=== PATIENT | female | born 1965 | race Caucasian/White ===

== ENCOUNTER 2022-09-04 21:55 | Observation (INO) ==
[2022-09-04] MEDS ORDERED: SODIUM CHLORIDE 0.9% 1000ML 1,000 ML IV SCH (22:30)
[2022-09-04] MEDS ORDERED: OPTIRAY 320 500ml IV ONE (22:45)
[2022-09-04 22:47] LABS: iSTAT Creatinine 1.1 mg/dl (0.6-1.3); iSTAT Hemoglobin 13.6 g/dl (12.0-16.0); iSTAT Ionized Calcium 1.18 mmol/l (1.12-1.32); iSTAT Potassium 3.9 mmol/L (3.3-5.0)
[2022-09-04 23:00] LABS: Basophils # (auto) 0.03 K/uL (0-0.2); Basophils % (auto) 0.4 %; Eosinophils # (auto) 0.08 K/uL (0-0.50); Eosinophils % (auto) 1.1 %; Hematocrit (blood only) 38.9 % (37.0-47.0); Hemoglobin 13.5 g/dl (12.0-16.0); Immature Granulocytes # (auto) 0.01 K/uL (0.01-0.20); Immature Granulocytes % (auto) 0.1 %; Lymphocytes # (auto) 2.22 K/uL (1.2-3.4); Lymphocytes % (auto) 31.2 %; Mean Corpuscular Hemoglobin 31.7 pg (25.0-34.0); Mean Corpuscular Hgb Conc 34.7 g/dL (32.0-36.0); Mean Corpuscular Volume 91.3 fL (80.0-100.0); Monocytes # (auto) 0.74 K/uL (0.11-0.59); Monocytes % (auto) 10.4 %; Neutrophils # (auto) 4.04 K/uL (1.40-6.50); Neutrophils % (auto) 56.8 %; Platelet Count 217 K/uL (130-400); RDW Coefficient of Variation 12.8 % (11.5-14.5); RDW Standard Deviation 41.9 fL (36.4-46.3); Red Blood Count 4.26 M/uL (4.20-5.40); White Blood Count 7.12 K/ul (4.8-10.8)
[2022-09-04 23:04] LABS: Albumin Globulin Ratio 1.2 (0.9-2); Albumin Level 4.3 gm/dl (3.4-5.0); BUN Creatinine Ratio 20.2 (10-20); Bilirubin,Total 0.5 mg/dl (0.2-1.0); Calcium 9.4 mg/dl (8.6-10.3); Creatinine Clr Calc Pharmacy 50.9 ml/min; Est GFR (African American) 68.6 ml/min; Est GFR (Non-African American) 59.2 ml/min; Globulin 3.5 gm/dl (2.5-4.0); Magnesium 2.2 mg/dl (1.7-2.4); Potassium 3.9 mmol/L (3.5-5.1); Total Protein 7.8 gm/dl (6.0-8.3)
--- NOTE | 2022-09-04 23:05 | CT Scan Report ---
Exam(s): CT HEAD Without Contrast EXAM: CT Head Without Intravenous Contrast CLINICAL HISTORY: Reason for exam: neuro deficit, acute stroke suspected. TECHNIQUE: Axial computed tomography images of the head/brain without intravenous contrast. CTDI is 38.78 mGy and DLP is 1133.74 mGy-cm. Automated exposure control was utilized for the study. A dose lowering technique was utilized adhering to the principles of ALARA. COMPARISON: Comparison made to prior brain MRI from December 23, 2007. FINDINGS: Brain: Unremarkable. No hemorrhage. No significant white matter disease. No edema. Ventricles: Unremarkable. No ventriculomegaly. Bones/joints: Unremarkable. No acute fracture. Soft tissues: Unremarkable. Sinuses: Unremarkable as visualized. No acute sinusitis. Mastoid air cells: Unremarkable as visualized. No mastoid effusion. IMPRESSION: No evidence of acute intracranial pathology. Communications: Call Doctor Stroke Electronically signed by: Cristina Finley MD 09/04/22 23:04 PM
--- NOTE | 2022-09-04 23:08 | CT Scan Report ---
Exam(s): CTA HEAD With Contrast EXAM: CT Head With Intravenous Contrast CLINICAL HISTORY: Reason for exam: neuro deficit, acute stroke suspected. TECHNIQUE: Axial computed tomographic images of the head with intravenous contrast. CTDI is 38.78 mGy and DLP is 1133.74 mGy-cm. Automated exposure control was utilized for the study. A dose lowering technique was utilized adhering to the principles of ALARA. CONTRAST: Contrast must be dictated COMPARISON: No relevant prior studies available. FINDINGS: Right internal carotid artery: No acute findings. Intracranial segment is patent with no significant stenosis. No aneurysm. Right anterior cerebral artery: Unremarkable. No occlusion or significant stenosis. No aneurysm. Right middle cerebral artery: Unremarkable. No occlusion or significant stenosis. No aneurysm. Right posterior cerebral artery: Unremarkable. No occlusion or significant stenosis. No aneurysm. Right vertebral artery: Unremarkable as visualized. Left internal carotid artery: No acute findings. Intracranial segment is patent with no significant stenosis. No aneurysm. Left anterior cerebral artery: Unremarkable. No occlusion or significant stenosis. No aneurysm. Left middle cerebral artery: Unremarkable. No occlusion or significant stenosis. No aneurysm. Left posterior cerebral artery: Unremarkable. No occlusion or significant stenosis. No aneurysm. Left vertebral artery: Unremarkable as visualized. Basilar artery: Unremarkable. No occlusion or significant stenosis. No aneurysm. IMPRESSION: Negative CT angiogram of the head. Communications: Call Doctor Stroke Electronically signed by: Cristina Finley MD 09/04/22 23:07 PM
[2022-09-04 23:09] LABS: Troponin I High Sensitivity 3.6 pg/ml (0-14)
--- NOTE | 2022-09-04 23:10 | CT Scan Report ---
Exam(s): CTA NECK With Contrast EXAM: CT Neck With Intravenous Contrast CLINICAL HISTORY: Reason for exam: neuro deficit, acute stroke suspected. TECHNIQUE: Routine carotid CT protocol was performed with intravenous contrast. NASCET criteria using the distal ICAs for comparison were used for evaluation of stenoses. CTDI is 38.78 mGy and DLP is 1133.74 mGy-cm. Automated exposure control was utilized for the study. A dose lowering technique was utilized adhering to the principles of ALARA. CONTRAST: Contrast must be dictated COMPARISON: None. FINDINGS: VASCULATURE: Right common carotid artery: Unremarkable. No occlusion or significant stenosis. No dissection. Right internal carotid artery: Unremarkable. Extracranial segment is patent with no occlusion or significant stenosis. No dissection. Right external carotid artery: Unremarkable. No occlusion. Right vertebral artery: Unremarkable. No occlusion or significant stenosis. No dissection. Left common carotid artery: Unremarkable. No occlusion or significant stenosis. No dissection. Left internal carotid artery: Unremarkable. Extracranial segment is patent with no occlusion or significant stenosis. No dissection. Left external carotid artery: Unremarkable. No occlusion. Left vertebral artery: Unremarkable. No occlusion or significant stenosis. No dissection. NECK: Bones/joints: Unremarkable. Soft tissues: Prominent cervical lymph nodes. Lung apices: Findings concerning for bronchitis, which may be of infectious or inflammatory etiologies. CAROTID STENOSIS REFERENCE USING NASCET CRITERIA: % ICA stenosis = (1 - narrowest ICA diameter/diameter of distal cervical ICA) x 100. Mild - <50% stenosis. Moderate - 50-69% stenosis. Severe - 70-94% stenosis. Near occlusion - 95-99% stenosis. Occluded - 100% stenosis. IMPRESSION: Negative CTA neck. Communications: Call Doctor Stroke Electronically signed by: Cristina Finley MD 09/04/22 23:09 PM
[2022-09-04 23:16] LABS: Partial Thromboplastin Ratio 0.9; Partial Thromboplastin Time 24.5 Seconds (21.0-31.0); Prothrombin Time 10.8 Seconds (9.0-12.0)
--- NOTE | 2022-09-04 23:36 | Emergency Department Note ---
History of Present Illness General Chief complaint: Visual Disturbance Stated complaint: RIGHT EYE VISION PROBLEM Time Seen by Provider: 09/04/22 22:10 History of Present Illness Maximum Pain Intensity: 4 This is a 57-year-old female presenting to the emergency department for evaluation of vision changes in her right eye. Around 7:45 PM the patient was exercising and had started to run. She states that the perimeter of her vision in the right eye started to become black and then migrate centrally where she was not able to see out of the right eye. The episode lasted for 3 to 4 minutes before her vision spontaneously returned. Over the past 2 hours she has had roughly 6 or 7 identical episodes. She does not endorse significant head, neck, or chest pain. The patient may have an old history of mini stroke/TIA, and is on aspirin. She may have had some mild headache symptoms yesterday and took Tylenol. She is able to move arms and legs without difficulty. No fevers or ch ills. No injury or trauma. No slurred speech. She rates her discomfort a 4/10. She did have an eye doctor's appointment yesterday and was told her vision was normal. Home Medications Medication Instructions Recorded Confirmed Type aspirin 81 mg tablet,delayed 81 mg PO DAILY 09/04/22 09/04/22 History release cholecalciferol (vitamin D3) 50 100 mcg PO DAILY 09/04/22 09/04/22 History mcg (2,000 unit) capsule estradiol 0.025 mg/24 hr 1 patch transdermal [id number] 09/04/22 09/04/22 History semiweekly transdermal patch lorazepam 0.5 mg tablet 0.5 mg PO DAILY PRN Anxiety 09/04/22 09/04/22 History nortriptyline 10 mg capsule 20 mg PO HS 09/04/22 09/04/22 History ubrogepant 50 mg tablet (Ubrelvy) 50 mg PO UD PRN Migraine Headache 09/04/22 09/04/22 History vitamin E 268 mg (400 unit) capsule 268 mg PO DAILY 09/04/22 09/04/22 History amlodipine 5 mg tablet (Norvasc) 5 mg PO QAM #30 tabs 09/05/22 Rx doxycycline hyclate 100 mg capsule 100 mg PO BID #19 caps 09/05/22 Rx Allergies Allergy/AdvReac Type Severity Reaction Status Date / Time No Known Drug Allergies Allergy Verified 08/05/22 09:02 Past Med/Surg History Medical History Endometriosis Posterior herniation of lumbar disc Subclinical hypothyroidism Surgical History S/P laparoscopic hysterectomy RATLH-BS, excision of endometriosis, cystoscopy for fibroid uterus S/P subtotal parathyroidectomy 3/4 Family History Denies family history of Ovarian cancer Breast cancer Colorectal cancer Uterine cancer Social History Smoking Status: Former smoker Do You Dip or Chew Tobacco: No; Tobacco Cessation Education Requested by Patient: No Hx Alcohol Use: Yes Hx Substance Use: No Preferred Language: [place] Communication Ability: Effective Director Required: No Beliefs That Will Affect Care: None Current Living Situation: Spouse Other Information That Helps Us Care for You: No Feels Safe at Home: Yes Safety Concerns: Feels Safe At This Time Assistive Devices: Glasses Review of Systems A total of 10 systems reviewed and were otherwise negative Physical Exam Vital Signs Vital Signs - 24 hr 09/04/22 22:50 09/04/22 23:00 09/04/22 23:30 Pulse Rate 60 57 L Pulse Rate [Left Apical] 61 Pulse Rate from SpO2 Sensor 57 L Respiratory Rate 19 18 17 Blood Pressure 134/84 137/86 Blood Pressure [Right Arm] 156/96 H Blood Pressure Mean 100 103 Blood Pressure Mean [Right Arm] 116 Pulse Oximetry 97 99 96 Oxygen Delivery Method Room Air Room Air 09/05/22 00:00 09/04/22 23:40 Pulse Rate 58 L 66 Pulse Rate [Left Apical] Pulse Rate from SpO2 Sensor 59 L Respiratory Rate 16 Blood Pressure 132/86 Blood Pressure [Right Arm] Blood Pressure Mean 101 Blood Pressure Mean [Right Arm] Pulse Oximetry 95 Oxygen Delivery Method VITALS: Vitals are noted on the nurse's note and reviewed by myself. Vital signs stable. GENERAL: Well-developed, well-nourished, white female, who is in no acute distress and resting comfortably. Patient is cooperative with the examination. HEAD: Normocephalic atraumatic. EARS: External ear normal. External auditory canals clear, tympanic membranes pearly [place] without erythema or effusion bilaterally. EYES: Pupils equal round and reactive to light and accommodation. Conjunctivae without injection, sclerae without icterus. Extraocular movements intact. NOSE: Patent, turbinates without inflammation or discharge. MOUTH: Mucous membranes moist. Tonsils are not enlarged. Pharynx without erythema, blood, or exudate. Uvula midline. Airway patent. NECK: Supple without nuchal rigidity. No lymphadenopathy. No thyromegaly. Cervical spine is nontender. HEART: Regular rate and rhythm without murmurs gallops or rubs. LUNGS: Clear to auscultation bilaterally without wheezes, rales or rhonchi. No retractions or accessory muscle use. ABDOMEN: Positive normal bowel sounds x 4. Soft, nontender, without masses or organomegaly. No guarding or rebound tenderness. MUSCULOSKELETAL: No muscle atrophy, erythema, or edema noted. Full range of motion in all extremities. No tenderness to palpation. Normal gait. Strength 5/5 throughout. NEURO: Patient was alert and oriented to person place and time. CN II through XII grossly intact. No focal neurological deficits. Deep tendon reflexes 2+ throughout. SKIN: The skin was without rashes, erythema, edema, or bruising. Capillary refill less than 2 seconds. Course Administered Medications Discontinued Medications Acetaminophen (Acetaminophen 325 Mg Tab) 650 mg PO Q4H PRN PRN Reason: Pain or Fever Stop: 10/05/22 02:01 Last Admin: 09/05/22 08:53 Dose: 650 mg Documented By: RODERICK Amlodipine Besylate (Amlodipine Besylate 5 Mg Tab) 5 mg PO NOW ONE Stop: 09/05/22 13:35 Last Admin: 09/05/22 14:43 Dose: 5 mg Documented By: RODERICK Aspirin (Aspirin 81 Mg Ectab) 81 mg PO DAILY [facility] Stop: 10/05/22 08:59 Last Admin: 09/05/22 08:53 Dose: 81 mg Documented By: RODERICK Clopidogrel Bisulfate (Clopidogrel Bisulfate 75 Mg Tab) 75 mg PO NOW STA Stop: 09/05/22 01:32 Last Admin: 09/05/22 04:38 Dose: 75 mg Documented By: AMADOU Enoxaparin Sodium (Enoxaparin Inj 30 Mg/0.3 Ml Syr) 30 mg SQ QAM [facility] Stop: 10/05/22 08:59 Last Admin: 09/05/22 08:54 Dose: 30 mg Documented By: RODERICK Sodium Chloride (Nss 1000ml) 1,000 mls @ 50 mls/hr IV .Q20H NICOLE Stop: 10/04/22 22:29 Last Infusion: 09/05/22 00:08 Dose: 0 mls/hr Documented By: Admin: 09/04/22 22:53 Dose: 50 mls/hr Documented By: ISA Sodium Chloride (Nss 1000ml) 1,000 mls @ 50 mls/hr IV .Q20H STA Stop: 09/05/22 19:43 Last Infusion: 09/05/22 04:38 Dose: 50 mls/hr Documented By: Admin: 09/05/22 00:09 Dose: 75 mls/hr Documented By: MATIAS Doxycycline Hyclate 100 mg/ (Dextrose) 110 mls @ 50 mls/hr IV NOW STA Stop: 09/05/22 03:38 Last Infusion: 09/05/22 04:42 Dose: 0 mls/hr Documented By: Admin: 09/05/22 02:30 Dose: 50 mls/hr Documented By: AMADOU Ioversol (Optiray 320 500ml) 112 ml IV ONCE ONE Stop: 09/04/22 22:46 Last Admin: 09/04/22 22:46 Dose: 112 ml Documented By: LIZZETH Lorazepam (Lorazepam 0.5 Mg Tab) 0.5 mg PO DAILY PRN PRN Reason: Anxiety Stop: 10/05/22 02:01 Last Admin: 09/05/22 11:17 Dose: 0.5 mg Documented By: RODERICK Medical Decision Making Differential Diagnosis The differential diagnosis includes, but is not limited to: acute intracranial bleed, TIA, meningitis, encephalitis, mass or mass effect, sinusitis, infection, tumor, headache, temporal arteritis and carbon monoxide exposure, and migraine. Laboratory Data 09/04/22 22:29 09/04/22 22:29 Lab Results 09/04/22 09/04/22 09/04/22 Range/Units 22:29 22:29 22:29 WBC 7.12 (4.8-10.8) K/ul RBC 4.26 (4.20-5.40) M/uL Hgb 13.5 (12.0-16.0) g/dl POC Hgb (12.0-16.0) g/dl Hct 38.9 (37.0-47.0) % POC Hct (37-47) % MCV 91.3 (80.0-100.0) fL MCH 31.7 (25.0-34.0) pg MCHC 34.7 (32.0-36.0) g/dL RDW Std Deviation 41.9 (36.4-46.3) fL RDW Coeff of Isma 12.8 (11.5-14.5) % Plt Count 217 (130-400) K/uL MPV 12.0 (9.4-12.4) fL Immature Gran % (Auto) 0.1 % Neut % (Auto) 56.8 % Lymph % (Auto) 31.2 % [place] % (Auto) 10.4 % Eos % (Auto) 1.1 % Baso % (Auto) 0.4 % Neut # (Auto) 4.04 (1.40-6.50) K/uL Lymph # (Auto) 2.22 (1.2-3.4) K/uL [place] # (Auto) 0.74 H (0.11-0.59) K/uL Eos # (Auto) 0.08 (0-0.50) K/uL Baso # (Auto) 0.03 (0-0.2) K/uL Immature Gran # (Auto) 0.01 (0.01-0.20) K/uL PT 10.8 (9.0-12.0) Seconds INR 1.0 (0.9-1.1) APTT 24.5 (21.0-31.0) Seconds PTT Ratio 0.9 POC Sodium (135-144) mmol/L Sodium (136-145) mmol/L POC Potassium (3.3-5.0) mmol/L Potassium (3.5-5.1) mmol/L POC Chloride (101-112) mmol/L Chloride (98-107) mmol/L Carbon Dioxide (21-32) mmol/L POC Total CO2 (24-31) mmol/L Anion Gap (3-11) POC Anion Gap (16-25) mmol/L POC BUN (7-18) mg/dl BUN (6-23) mg/dl Creatinine (0.6-1.2) mg/dl POC Creatinine (0.6-1.3) mg/dl Est Cr Clr Drug Dosing ml/min Est GFR ( Amer) ml/min Est GFR (Non-Af Amer) ml/min BUN/Creatinine Ratio (10-20) Glucose (70-99(Fasting)) mg/dl POC Glucose (other) (70-99) mg/dl Calcium (8.6-10.3) mg/dl POC Ioniz Calcium Angel (1.12-1.32) mmol/l Magnesium (1.7-2.4) mg/dl Total Bilirubin (0.2-1.0) mg/dl AST (13-39) U/L ALT (7-52) U/L Alkaline Phosphatase (34-104) U/L Troponin I High Sens (0-14) pg/ml Total Protein (6.0-8.3) gm/dl Albumin (3.4-5.0) gm/dl Globulin (2.5-4.0) gm/dl Albumin/Globulin Ratio (0.9-2) TSH (0.300-4.500) uIu/ml Lyme Disease IgG Ab (Negative) Lyme Disease IgM Ab (Negative) SARS-CoV-2, RNA, NAAT (NEGATIVE) Blood Type B Positive Antibody Screen NEGATIVE 09/04/22 09/04/22 09/04/22 Range/Units 22:29 22:29 22:29 WBC (4.8-10.8) K/ul RBC (4.20-5.40) M/uL Hgb (12.0-16.0) g/dl POC Hgb (12.0-16.0) g/dl Hct (37.0-47.0) % POC Hct (37-47) % MCV (80.0-100.0) fL MCH (25.0-34.0) pg MCHC (32.0-36.0) g/dL RDW Std Deviation (36.4-46.3) fL RDW Coeff of Isma (11.5-14.5) % Plt Count (130-400) K/uL MPV (9.4-12.4) fL Immature Gran % (Auto) % Neut % (Auto) % Lymph % (Auto) % [place] % (Auto) % Eos % (Auto) % Baso % (Auto) % Neut # (Auto) (1.40-6.50) K/uL Lymph # (Auto) (1.2-3.4) K/uL [place] # (Auto) (0.11-0.59) K/uL Eos # (Auto) (0-0.50) K/uL Baso # (Auto) (0-0.2) K/uL Immature Gran # (Auto) (0.01-0.20) K/uL PT (9.0-12.0) Seconds INR (0.9-1.1) APTT (21.0-31.0) Seconds PTT Ratio POC Sodium (135-144) mmol/L Sodium 139 (136-145) mmol/L POC Potassium (3.3-5.0) mmol/L Potassium 3.9 (3.5-5.1) mmol/L POC Chloride (101-112) mmol/L Chloride 104 (98-107) mmol/L Carbon Dioxide 29 (21-32) mmol/L POC Total CO2 (24-31) mmol/L Anion Gap 6 (3-11) POC Anion Gap (16-25) mmol/L POC BUN (7-18) mg/dl BUN 21 (6-23) mg/dl Creatinine 1.04 (0.6-1.2) mg/dl POC Creatinine (0.6-1.3) mg/dl Est Cr Clr Drug Dosing 50.9 ml/min Est GFR ( Amer) 68.6 ml/min Est GFR (Non-Af Amer) 59.2 ml/min BUN/Creatinine Ratio 20.2 H (10-20) Glucose 105 H (70-99(Fasting)) mg/dl POC Glucose (other) (70-99) mg/dl Calcium 9.4 (8.6-10.3) mg/dl POC Ioniz Calcium Angel (1.12-1.32) mmol/l Magnesium 2.2 (1.7-2.4) mg/dl Total Bilirubin 0.5 (0.2-1.0) mg/dl AST 24 (13-39) U/L ALT 23 (7-52) U/L Alkaline Phosphatase 73 (34-104) U/L Troponin I High Sens 3.6 (0-14) pg/ml Total Protein 7.8 (6.0-8.3) gm/dl Albumin 4.3 (3.4-5.0) gm/dl Globulin 3.5 (2.5-4.0) gm/dl Albumin/Globulin Ratio 1.2 (0.9-2) TSH 3.455 (0.300-4.500) uIu/ml Lyme Disease IgG Ab Negative (Negative) Lyme Disease IgM Ab Equivocal A (Negative) SARS-CoV-2, RNA, NAAT (NEGATIVE) Blood Type Antibody Screen 09/04/22 09/05/22 Range/Units 22:34 00:04 WBC (4.8-10.8) K/ul RBC (4.20-5.40) M/uL Hgb (12.0-16.0) g/dl POC Hgb 13.6 (12.0-16.0) g/dl Hct (37.0-47.0) % POC Hct 40 (37-47) % MCV (80.0-100.0) fL MCH (25.0-34.0) pg MCHC (32.0-36.0) g/dL RDW Std Deviation (36.4-46.3) fL RDW Coeff of Isma (11.5-14.5) % Plt Count (130-400) K/uL MPV (9.4-12.4) fL Immature Gran % (Auto) % Neut % (Auto) % Lymph % (Auto) % [place] % (Auto) % Eos % (Auto) % Baso % (Auto) % Neut # (Auto) (1.40-6.50) K/uL Lymph # (Auto) (1.2-3.4) K/uL [place] # (Auto) (0.11-0.59) K/uL Eos # (Auto) (0-0.50) K/uL Baso # (Auto) (0-0.2) K/uL Immature Gran # (Auto) (0.01-0.20) K/uL PT (9.0-12.0) Seconds INR (0.9-1.1) APTT (21.0-31.0) Seconds PTT Ratio POC Sodium 141 (135-144) mmol/L Sodium (136-145) mmol/L POC Potassium 3.9 (3.3-5.0) mmol/L Potassium (3.5-5.1) mmol/L POC Chloride 102 (101-112) mmol/L Chloride (98-107) mmol/L Carbon Dioxide (21-32) mmol/L POC Total CO2 26 (24-31) mmol/L Anion Gap (3-11) POC Anion Gap 18.0 (16-25) mmol/L POC BUN 20 H (7-18) mg/dl BUN (6-23) mg/dl Creatinine (0.6-1.2) mg/dl POC Creatinine 1.1 (0.6-1.3) mg/dl Est Cr Clr Drug Dosing ml/min Est GFR ( Amer) ml/min Est GFR (Non-Af Amer) ml/min BUN/Creatinine Ratio (10-20) Glucose (70-99(Fasting)) mg/dl POC Glucose (other) 106 H (70-99) mg/dl Calcium (8.6-10.3) mg/dl POC Ioniz Calcium Angel 1.18 (1.12-1.32) mmol/l Magnesium (1.7-2.4) mg/dl Total Bilirubin (0.2-1.0) mg/dl AST (13-39) U/L ALT (7-52) U/L Alkaline Phosphatase (34-104) U/L Troponin I High Sens (0-14) pg/ml Total Protein (6.0-8.3) gm/dl Albumin (3.4-5.0) gm/dl Globulin (2.5-4.0) gm/dl Albumin/Globulin Ratio (0.9-2) TSH (0.300-4.500) uIu/ml Lyme Disease IgG Ab (Negative) Lyme Disease IgM Ab (Negative) SARS-CoV-2, RNA, NAAT NEGATIVE (NEGATIVE) Blood Type Antibody Screen Imaging Data Radiologist's Impression: Head CT 09/04/22 22:19 CR Exam(s): CT HEAD Without Contrast EXAM: CT Head Without Intravenous Contrast CLINICAL HISTORY: Reason for exam: neuro deficit, acute stroke suspected. TECHNIQUE: Axial computed tomography images of the head/brain without intravenous contrast. CTDI is 38.78 mGy and DLP is 1133.74 mGy-cm. Automated exposure control was utilized for the study. A dose lowering technique was utilized adhering to the principles of ALARA. COMPARISON: Comparison made to prior brain MRI from December 23, 2007. FINDINGS: Brain: Unremarkable. No hemorrhage. No significant white matter disease. No edema. Ventricles: Unremarkable. No ventriculomegaly. Bones/joints: Unremarkable. No acute fracture. Soft tissues: Unremarkable. Sinuses: Unremarkable as visualized. No acute sinusitis. Mastoid air cells: Unremarkable as visualized. No mastoid effusion. IMPRESSION: No evidence of acute intracranial pathology. Communications: Call Doctor Stroke Electronically signed by: Cristina Finley MD 09/04/22 23:04 PM Head CTA 09/04/22 22:19 CR Exam(s): CTA HEAD With Contrast EXAM: CT Head With Intravenous Contrast CLINICAL HISTORY: Reason for exam: neuro deficit, acute stroke suspected. TECHNIQUE: Axial computed tomographic images of the head with intravenous contrast. CTDI is 38.78 mGy and DLP is 1133.74 mGy-cm. Automated exposure control was utilized for the study. A dose lowering technique was utilized adhering to the principles of ALARA. CONTRAST: Contrast must be dictated COMPARISON: No relevant prior studies available. FINDINGS: Right internal carotid artery: No acute findings. Intracranial segment is patent with no significant stenosis. No aneurysm. Right anterior cerebral artery: Unremarkable. No occlusion or significant stenosis. No aneurysm. Right middle cerebral artery: Unremarkable. No occlusion or significant stenosis. No aneurysm. Right posterior cerebral artery: Unremarkable. No occlusion or significant stenosis. No aneurysm. Right vertebral artery: Unremarkable as visualized. Left internal carotid artery: No acute findings. Intracranial segment is patent with no significant stenosis. No aneurysm. Left anterior cerebral artery: Unremarkable. No occlusion or significant stenosis. No aneurysm. Left middle cerebral artery: Unremarkable. No occlusion or significant stenosis. No aneurysm. Left posterior cerebral artery: Unremarkable. No occlusion or significant stenosis. No aneurysm. Left vertebral artery: Unremarkable as visualized. Basilar artery: Unremarkable. No occlusion or significant stenosis. No aneurysm. IMPRESSION: Negative CT angiogram of the head. Communications: Call Doctor Stroke Electronically signed by: Cristina Finley MD 09/04/22 23:07 PM Neck CTA 09/04/22 22:19 CR Exam(s): CTA NECK With Contrast EXAM: CT Neck With Intravenous Contrast CLINICAL HISTORY: Reason for exam: neuro deficit, acute stroke suspected. TECHNIQUE: Routine carotid CT protocol was performed with intravenous contrast. NASCET criteria using the distal ICAs for comparison were used for evaluation of stenoses. CTDI is 38.78 mGy and DLP is 1133.74 mGy-cm. Automated exposure control was utilized for the study. A dose lowering technique was utilized adhering to the principles of ALARA. CONTRAST: Contrast must be dictated COMPARISON: None. FINDINGS: VASCULATURE: Right common carotid artery: Unremarkable. No occlusion or significant stenosis. No dissection. Right internal carotid artery: Unremarkable. Extracranial segment is patent with no occlusion or significant stenosis. No dissection. Right external carotid artery: Unremarkable. No occlusion. Right vertebral artery: Unremarkable. No occlusion or significant stenosis. No dissection. Left common carotid artery: Unremarkable. No occlusion or significant stenosis. No dissection. Left internal carotid artery: Unremarkable. Extracranial segment is patent with no occlusion or significant stenosis. No dissection. Left external carotid artery: Unremarkable. No occlusion. Left vertebral artery: Unremarkable. No occlusion or significant stenosis. No dissection. NECK: Bones/joints: Unremarkable. Soft tissues: Prominent cervical lymph nodes. Lung apices: Findings concerning for bronchitis, which may be of infectious or inflammatory etiologies. CAROTID STENOSIS REFERENCE USING NASCET CRITERIA: % ICA stenosis = (1 - narrowest ICA diameter/diameter of distal cervical ICA) x 100. Mild - <50% stenosis. Moderate - 50-69% stenosis. Severe - 70-94% stenosis. Near occlusion - 95-99% stenosis. Occluded - 100% stenosis. IMPRESSION: Negative CTA neck. Communications: Call Doctor Stroke Electronically signed by: Cristina Finley MD 09/04/22 23:09 PM MDM Narrative Physical exam and history were performed. Nursing notes, EMR, and Medication List were personally reviewed. No social concerns were identified as barriers to patients care. Patient appears to have visual disturbance in her right eye. This seems to be waxing and waning. Symptoms have been ongoing since about 7:45 PM. She does not have extremity symptoms. IV access was established and labs were obtained. Stroke order set was used to begin the patient's evaluation. Patient's blood work is as above and was reviewed. She does not have a significantly elevated white blood cell count, gross anemia, bandemia, or significant electrolyte imbalance. Transaminases are not diagnostic. CTs and CT angiograms were reviewed by myself and radiology showing no obvious acute process. I did speak with radiology about this, who confirmed no acute findings. On reevaluation the patient continues to be asymptomatic here in the ER. Her differential diagnosis is wide and she will need further evaluation here in the hospital. The case was discussed with the on-call hospitalist team who agreed to evaluate her here in the ER. Please see their dictation for further patient course, plan, disposition. The chart was completed utilizing [employer] Speech Voice Recognition Software. Grammatical errors, random word insertions, pronoun errors, and incomplete sentences are an occasional consequence of this system due to software limitations, ambient noise, and hardware issues. Any formal questions or concerns about the content, text, or information contained within the body of this dictation should be directly addressed to the provider for clarification. . Impression & Plan Transient visual disturbance, right Discharge Plan Visit Data Chief Complaint: Visual Disturbance Stated Complaint: RIGHT EYE VISION PROBLEM ED Provider: Maulik Magdaleno ED Midlevel Provider: João Perdomo Discharge Problem: Transient visual disturbance, right Patient Disposition: Admitted As Inpatient Discharge Instructions Interventions: ED Discharge Assessment Last Done: 09/05/22 01:18
[2022-09-04] MEDS ORDERED: SODIUM CHLORIDE 0.9% 1000ML 1,000 ML IV STA (23:44)
--- NOTE | 2022-09-05 00:43 | History & Physical Report ---
Date of Service September 05, 2022 Assessment & Plan (1) Transient visual disturbance, right: Plan: TIA presenting as amaurosis fugax, right, possible aspirin failure, history small vessel ischemic disease; in the setting of recent hormonal replacement therapy Rule out Lyme disease with equivocal Lyme test hypertension, elevated secondary to above primary hyperparathyroidism status post surgery hx migraine, patient headache different from usual migraine attacks hx GERD, takes antacid as needed anxiety/mood disorder, at baseline Medical telemetry Neurochecks MRI brain, TTE, lipid panel check for stroke work-up Plavix for possible aspirin failure, permissive hypertension until new stroke definitely ruled out Appropriate to hold HRT given stroke concerns Doxycycline for abnormal Lyme screen, further management pending final Lyme test results Neurology consult Re: Transient monocular blindness DVT prophylaxis with Lovenox subcu Full code Text document was generated using [employer] voice recognition software. It may contain grammatical or spelling errors. Kindly contact undersigned for clarification of any documentation item in question. History of Present Illness Chief Complaint: Transient blindness right eye Primary Care Provider: Timoteo Vasquez DO History obtained from patient and records. Medical history significant for hypertension, hx small vessel ischemic disease on outpatient imaging, primary hyperparathyroidism status post surgery, migraine, GERD, anxiety/mood disorder. Patient started by service girl on estrogen patch for perimenopausal vasomotor symptoms last month. Last night, patient was out for a jog when she noted a black spot on the periphery of her right eye. Black spot went into the middle of her high causing her to be blind for about 4 minutes. Tolerable biparietal headache symptoms at time of event different from usual migraine attack. No neck pain. No recollection of tick bites but patient recalls being out in the earlier yesterday. Patient denies chest pain, SOB. No recent head trauma. Patient compliant with home aspirin prescribed for small vessel ischemic disease findings on outpatient imaging last year following work-up for headache symptoms later attributed to migraine. Aspirin prescribed by neurologist for stroke prevention. Patient consulted ER for evaluation. 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 Allergies Allergy/AdvReac Type Severity Reaction Status Date / Time No Known Drug Allergies Allergy Verified 08/05/22 09:02 Home Medications Medication Instructions Recorded Confirmed Type atenolol 25 mg tablet 25 mg PO DAILY 06/28/22 09/04/22 History aspirin 81 mg tablet,delayed 81 mg PO DAILY 09/04/22 09/04/22 History release cholecalciferol (vitamin D3) 50 100 mcg PO DAILY 09/04/22 09/04/22 History mcg (2,000 unit) capsule estradiol 0.025 mg/24 hr 1 patch transdermal 2XWK 09/04/22 09/04/22 History semiweekly transdermal patch lorazepam 0.5 mg tablet 0.5 mg PO DAILY PRN Anxiety 09/04/22 09/04/22 History nortriptyline 10 mg capsule 20 mg PO HS 09/04/22 09/04/22 History ubrogepant 50 mg tablet (Ubrelvy) 50 mg PO UD PRN Migraine Headache 09/04/22 09/04/22 History vitamin E 268 mg (400 unit) capsule 268 mg PO DAILY 09/04/22 09/04/22 History Past Med/Surg History Medical History Endometriosis Posterior herniation of lumbar disc Subclinical hypothyroidism Surgical History S/P laparoscopic hysterectomy RATLH-BS, excision of endometriosis, cystoscopy for fibroid uterus S/P subtotal parathyroidectomy 3/4 Family History Denies family history of Ovarian cancer Breast cancer Colorectal cancer Uterine cancer Social History Smoking Status: Former smoker Do You Dip or Chew Tobacco: No; Tobacco Cessation Education Requested by Patient: No Hx Alcohol Use: Yes Hx Substance Use: No Preferred Language: Lithuanian Communication Ability: Effective Screw 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 Required: No Beliefs That Will Affect Care: None Current Living Situation: Spouse Other Information That Helps Us Care for You: No Feels Safe at Home: Yes Safety Concerns: Feels Safe At This Time Assistive Devices: Glasses Review of Systems Review of Systems: As per HPI, all other systems reviewed and negative Physical Exam Physical Exam: GENERAL: Comfortable, pleasant, no respiratory distress SKIN: Normal color, warm HEENT: Diamond palpebral conjunctivae, no ptosis, dry buccal mucosa NECK : Supple, no tenderness CHEST : CTA, no tenderness HEART : Bradycardic, no obvious murmurs ABDOMEN: Some distention, nontender EXTREMITIES : No LE swelling/tenderness, no other conspicuous deformities noted NEUROLOGIC : Coherent, no facial asymmetry, no other gross focality Results & Data Results & Data Vital Signs (Past 12 Hours) Vital Signs Temp Pulse Pulse Resp BP BP Pulse Ox 09/04/22 23:40 66 09/05/22 00:00 58 L 16 132/86 95 09/04/22 23:30 57 L 17 137/86 96 09/04/22 23:00 60 18 134/84 99 09/04/22 22:50 61 19 156/96 H 97 09/04/22 22:00 36.8 C 57 L 18 151/86 H 98 O2 Del Method 09/04/22 23:40 09/05/22 00:00 09/04/22 23:30 09/04/22 23:00 Room Air 09/04/22 22:50 Room Air 09/04/22 22:00 Room Air Laboratory Results Laboratory Results WBC 7.12 K/ul (4.8-10.8) 09/04/22 22: RBC 4.26 M/uL (4.20-5.40) 09/04/22 22: Hgb 13.5 g/dl (12.0-16.0) 09/04/22 22: POC Hgb 13.6 g/dl (12.0-16.0) 09/04/22 22:34 Hct 38.9 % (37.0-47.0) 09/04/22 22: POC Hct 40 % (37-47) 09/04/22 22: MCV 91.3 fL (80.0-100.0) 09/04/22 22: MCH 31.7 pg (25.0-34.0) 09/04/22 22: MCHC 34.7 g/dL (32.0-36.0) 09/04/22: RDW Std Deviation 41.9 fL (36.4-46.3) 09/04/22 22: RDW Coeff of Isma 12.8 % (11.5-14.5) 09/04/22: Plt Count 217 K/uL (130-400) 09/04/22 22: MPV 12.0 fL (9.4-12.4) 09/04/22: Immature Gran % (Auto) 0.1 % 09/04/22: Neut % (Auto) 56.8 % 09/04/22: Lymph % (Auto) 31.2 % 09/04/22: [place] % (Auto) 10.4 % 09/04/22: Eos % (Auto) 1.1 % 09/04/22: Baso % (Auto) 0.4 % 09/04/22: Neut # (Auto) 4.04 K/uL (1.40-6.50) 09/04/22: Lymph # (Auto) 2.22 K/uL (1.2-3.4) 09/04/22: [place] # (Auto) 0.74 K/uL (0.11-0.59) H 09/04/22: Eos # (Auto) 0.08 K/uL (0-0.50) 09/04/22: Baso # (Auto) 0.03 K/uL (0-0.2) 09/04/22: Immature Gran # (Auto) 0.01 K/uL (0.01-0.20) 09/04/22: PT 10.8 Seconds (9.0-12.0) 09/04/22: INR 1.0 (0.9-1.1) 09/04/22: APTT 24.5 Seconds (21.0-31.0) 09/04/22: PTT Ratio 0.9 09/04/22: POC Sodium 141 mmol/L (135-144) 09/04/22 22: Sodium 139 mmol/L (136-145) 09/04/22: POC Potassium 3.9 mmol/L (3.3-5.0) 09/04/22: Potassium 3.9 mmol/L (3.5-5.1) 09/04/22: POC Chloride 102 mmol/L (101-112) 09/04/22: Chloride 104 mmol/L (98-107) 09/04/22: Carbon Dioxide 29 mmol/L (21-32) 09/04/22 22:29 POC Total CO2 26 mmol/L (24-31) 09/04/22 22:34 Anion Gap 6 (3-11) 09/04/22 22:29 POC Anion Gap 18.0 mmol/L (16-25) 09/04/22 22:34 POC BUN 20 mg/dl (7-18) H 09/04/22 22:34 BUN 21 mg/dl (6-23) 09/04/22 22:29 Creatinine 1.04 mg/dl (0.6-1.2) 09/04/22 22:29 POC Creatinine 1.1 mg/dl (0.6-1.3) 09/04/22 22:34 Est Cr Clr Drug Dosing 50.9 ml/min 09/04/22 22:29 Est GFR ( Amer) 68.6 ml/min 09/04/22 22: Est GFR (Non-Af Amer) 59.2 ml/min 09/04/22 22: BUN/Creatinine Ratio 20.2 (10-20) H 09/04/22 22:29 Glucose 105 mg/dl (70-99(Fasting)) H 09/04/22 22:29 POC Glucose (other) 106 mg/dl (70-99) H 09/04/22 22:34 Calcium 9.4 mg/dl (8.6-10.3) 09/04/22 22:29 POC Ioniz Calcium Angel 1.18 mmol/l (1.12-1.32) 09/04/22 22:34 Magnesium 2.2 mg/dl (1.7-2.4) 09/04/22 22: Total Bilirubin 0.5 mg/dl (0.2-1.0) 09/04/22 22:29 AST 24 U/L (13-39) 09/04/22 22:29 ALT 23 U/L (7-52) 09/04/22 22: Alkaline Phosphatase 73 U/L (34-104) 09/04/22 22:29 Troponin I High Sens 3.6 pg/ml (0-14) 09/04/22 22:29 Total Protein 7.8 gm/dl (6.0-8.3) 09/04/22 22:29 Albumin 4.3 gm/dl (3.4-5.0) 09/04/22 22:29 Globulin 3.5 gm/dl (2.5-4.0) 09/04/22 22:29 Albumin/Globulin Ratio 1.2 (0.9-2) 09/04/22 22:29 SARS-CoV-2, RNA, NAAT NEGATIVE (NEGATIVE) 09/05/22 00:04 Blood Type B Positive 09/04/22 22:29 Antibody Screen NEGATIVE 09/04/22 22:[address] 09/04/22 22:19 CR Exam(s): CT HEAD Without Contrast EXAM: CT Head Without Intravenous Contrast CLINICAL HISTORY: Reason for exam: neuro deficit, acute stroke suspected. TECHNIQUE: Axial computed tomography images of the head/brain without intravenous contrast. CTDI is 38.78 mGy and DLP is 1133.74 mGy-cm. Automated exposure control was utilized for the study. A dose lowering technique was utilized adhering to the principles of ALARA. COMPARISON: Comparison made to prior brain MRI from December 23, 2007. FINDINGS: Brain: Unremarkable. No hemorrhage. No significant white matter disease. No edema. Ventricles: Unremarkable. No ventriculomegaly. Bones/joints: Unremarkable. No acute fracture. Soft tissues: Unremarkable. Sinuses: Unremarkable as visualized. No acute sinusitis. Mastoid air cells: Unremarkable as visualized. No mastoid effusion. IMPRESSION: No evidence of acute intracranial pathology. Communications: Call Doctor Stroke Electronically signed by: Cristina Finley MD 09/04/22 23:04 PM Head CTA 09/04/22 22:19 CR Exam(s): CTA HEAD With Contrast EXAM: CT Head With Intravenous Contrast CLINICAL HISTORY: Reason for exam: neuro deficit, acute stroke suspected. TECHNIQUE: Axial computed tomographic images of the head with intravenous contrast. CTDI is 38.78 mGy and DLP is 1133.74 mGy-cm. Automated exposure control was utilized for the study. A dose lowering technique was utilized adhering to the principles of ALARA. CONTRAST: Contrast must be dictated COMPARISON: No relevant prior studies available. FINDINGS: Right internal carotid artery: No acute findings. Intracranial segment is patent with no significant stenosis. No aneurysm. Right anterior cerebral artery: Unremarkable. No occlusion or significant stenosis. No aneurysm. Right middle cerebral artery: Unremarkable. No occlusion or significant stenosis. No aneurysm. Right posterior cerebral artery: Unremarkable. No occlusion or significant stenosis. No aneurysm. Right vertebral artery: Unremarkable as visualized. Left internal carotid artery: No acute findings. Intracranial segment is patent with no significant stenosis. No aneurysm. Left anterior cerebral artery: Unremarkable. No occlusion or significant stenosis. No aneurysm. Left middle cerebral artery: Unremarkable. No occlusion or significant stenosis. No aneurysm. Left posterior cerebral artery: Unremarkable. No occlusion or significant stenosis. No aneurysm. Left vertebral artery: Unremarkable as visualized. Basilar artery: Unremarkable. No occlusion or significant stenosis. No aneurysm. IMPRESSION: Negative CT angiogram of the head. Communications: Call Doctor Stroke Electronically signed by: Cristina Finley MD 09/04/22 23:07 PM Neck CTA 09/04/22 22:19 CR Exam(s): CTA NECK With Contrast EXAM: CT Neck With Intravenous Contrast CLINICAL HISTORY: Reason for exam: neuro deficit, acute stroke suspected. TECHNIQUE: Routine carotid CT protocol was performed with intravenous contrast. NASCET criteria using the distal ICAs for comparison were used for evaluation of stenoses. CTDI is 38.78 mGy and DLP is 1133.74 mGy-cm. Automated exposure control was utilized for the study. A dose lowering technique was utilized adhering to the principles of ALARA. CONTRAST: Contrast must be dictated COMPARISON: None. FINDINGS: VASCULATURE: Right common carotid artery: Unremarkable. No occlusion or significant stenosis. No dissection. Right internal carotid artery: Unremarkable. Extracranial segment is patent with no occlusion or significant stenosis. No dissection. Right external carotid artery: Unremarkable. No occlusion. Right vertebral artery: Unremarkable. No occlusion or significant stenosis. No dissection. Left common carotid artery: Unremarkable. No occlusion or significant stenosis. No dissection. Left internal carotid artery: Unremarkable. Extracranial segment is patent with no occlusion or significant stenosis. No dissection. Left external carotid artery: Unremarkable. No occlusion. Left vertebral artery: Unremarkable. No occlusion or significant stenosis. No dissection. NECK: Bones/joints: Unremarkable. Soft tissues: Prominent cervical lymph nodes. Lung apices: Findings concerning for bronchitis, which may be of infectious or inflammatory etiologies. CAROTID STENOSIS REFERENCE USING NASCET CRITERIA: % ICA stenosis = (1 - narrowest ICA diameter/diameter of distal cervical ICA) x 100. Mild - <50% stenosis. Moderate - 50-69% stenosis. Severe - 70-94% stenosis. Near occlusion - 95-99% stenosis. Occluded - 100% stenosis. IMPRESSION: Negative CTA neck. Communications: Call Doctor Stroke Electronically signed by: Cristina Finley MD 09/04/22 23:09 PM Diagnostic Findings EKG as per my interpretation : Rate 55, sinus bradycardia, normal axis, T wave abnormalities septal leads
[2022-09-05 01:12] LABS: Lyme Ab IgG w/WB Rflx Negative (Negative)
[2022-09-05 01:16] LABS: Lyme Ab IgM w/WB Rflx Equivocal (Negative)
[2022-09-05] MEDS ORDERED: DOXYCYCLINE HYCLATE 100 MG in DEXTROSE 5% 100 ML IV STA (01:27)
[2022-09-05] MEDS ORDERED: CLOPIDOGREL BISULFATE 75 MG TAB PO STA (01:31)
[2022-09-05] MEDS ORDERED: LORazepam 0.5 MG TAB PO PRN (02:02)
[2022-09-05] MEDS ORDERED: ACETAMINOPHEN 325 MG TAB PO PRN (02:02)
[2022-09-05] MEDS ORDERED: PROMETHAZINE HCL 6.25 MG in SODIUM CHLORIDE 0.9% 50 ML IV PRN (02:02)
[2022-09-05 06:39] LABS: Basophils # (auto) 0.02 K/uL (0-0.2); Basophils % (auto) 0.4 %; Eosinophils # (auto) 0.07 K/uL (0-0.50); Eosinophils % (auto) 1.4 %; Hematocrit (blood only) 36.1 % (37.0-47.0); Hemoglobin 12.5 g/dl (12.0-16.0); Immature Granulocytes # (auto) 0.02 K/uL (0.01-0.20); Immature Granulocytes % (auto) 0.4 %; Lymphocytes # (auto) 1.63 K/uL (1.2-3.4); Lymphocytes % (auto) 32.1 %; Mean Corpuscular Hemoglobin 31.6 pg (25.0-34.0); Mean Corpuscular Hgb Conc 34.6 g/dL (32.0-36.0); Mean Corpuscular Volume 91.4 fL (80.0-100.0); Mean Platelet Volume 11.9 fL (9.4-12.4); Monocytes # (auto) 0.61 K/uL (0.11-0.59); Neutrophils # (auto) 2.73 K/uL (1.40-6.50); Neutrophils % (auto) 53.7 %; Platelet Count 180 K/uL (130-400); RDW Coefficient of Variation 12.6 % (11.5-14.5); RDW Standard Deviation 41.6 fL (36.4-46.3); Red Blood Count 3.95 M/uL (4.20-5.40); White Blood Count 5.08 K/ul (4.8-10.8)
[2022-09-05 07:00] LABS: BUN Creatinine Ratio 19.3 (10-20); Calcium 8.7 mg/dl (8.6-10.3); Chol HDL Ratio 2.9 (0-5); Creatinine Clr Calc Pharmacy 66.5 ml/min; Est GFR (African American) 90.1 ml/min; Est GFR (Non-African American) 77.7 ml/min
[2022-09-05] MEDS ORDERED: ASPIRIN 81 MG ECTAB PO SCH (09:00)
[2022-09-05] MEDS ORDERED: ENOXAPARIN INJ 30 MG/0.3 ML SYR SQ SCH (09:00)
--- NOTE | 2022-09-05 10:11 | Neurology Consultation ---
Date of Consultation September 05, 2022 Assessment & Plan (1) Transient visual disturbance, right: Symptoms are not classic for a cerebrovascular cause of vision loss (amaurosis) - specifically the repetitive episodes over a short span of time and the preceding autonomic symptoms (ptosis). This suggests ocular migraine which more commonly has the autonomic component. Age and lack of associated symptoms makes temporal arteritis unlikely, would not start steroids. Do not suspect this is related to lyme disease which was found incidentally. If the MRI of the brain is unremarkable, would continue the patients home aspirin but otherwise suggest ocular migraine is the likely cause given her history. -- MRI brain without contrast pending, if negative, agree with discharge and outpatient follow-up with her neurologist -- Continue aspirin 81mg daily Telehealth Consultation Telehealth Information Telehealth Information: I performed this visit using a real-time telehealth connection between my location and the patients location ([facility]). After connecting through interactive tele-video, patient was identified by name and date of and/or wristband check.Patient (or authorized healthcare outside sales representative insurance) was informed that this was a telemedicine visit and it was being conducted confidentially over secure lines. My office door was closed and no one else was present in the room with me.Patient (or authorized healthcare outside sales representative insurance) provided consent to proceed with the visit, expressed an understanding of privacy and security of the telemedicine visit, and gave permission to have a hospital outside sales representative insurance in the room in order to assist with the visit and to conduct portions of the visit, as needed. I informed the patient (or authorized healthcare outside sales representative insurance) that I reviewed their record and presented the opportunity for them to ask any questions regarding the visit today. The patient agreed to participate. History of Present Illness Reason for Consultation: Transient visual loss Requesting Physician: Dr. Leonard Attending Physician: Edmar Leonard MD History of Present Illness Winston Perkins is a 57 yo F presenting with multiple episodes of visual loss yesterday. The patient has a history of episodic migraine and had a headache on Tuesday. Yesterday, she was running and felt that there was something in her R eye, she described tunnel vision but rubbed the eye and it resolved. Over the next hour she described multiple episodes of loss of vision in the R eye lasting minutes at a time. By the third episode she noticed that her R eyelid would droop prior the vision change. She denies any correlation between these episodes and headache. She has never had anything like this before. Denies any further episodes of vision change since admission and otherwise feels back to normal. She has seen neurology in the past for her headaches and was once told she has had "micro-strokes" before and since then has been taking a daily aspirin, despite a second neurologist saying she has never had a stroke before. She denies any temporal tenderness, no jaw claudication, no prior eye problem. Allergies Allergy/AdvReac Type Severity Reaction Status Date / Time No Known Drug Allergies Allergy Verified 08/05/22 09:02 Home Medications Medication Instructions Recorded Confirmed Type atenolol 25 mg tablet 25 mg PO DAILY 06/28/22 09/04/22 History aspirin 81 mg tablet,delayed 81 mg PO DAILY 09/04/22 09/04/22 History release cholecalciferol (vitamin D3) 50 100 mcg PO DAILY 09/04/22 09/04/22 History mcg (2,000 unit) capsule estradiol 0.025 mg/24 hr 1 patch transdermal 2XWK 09/04/22 09/04/22 History semiweekly transdermal patch lorazepam 0.5 mg tablet 0.5 mg PO DAILY PRN Anxiety 09/04/22 09/04/22 History nortriptyline 10 mg capsule 20 mg PO HS 09/04/22 09/04/22 History ubrogepant 50 mg tablet (Ubrelvy) 50 mg PO UD PRN Migraine Headache 09/04/22 09/04/22 History vitamin E 268 mg (400 unit) capsule 268 mg PO DAILY 09/04/22 09/04/22 History Patient History Medical History Endometriosis Posterior herniation of lumbar disc Subclinical hypothyroidism Surgical History S/P laparoscopic hysterectomy RATL-BS, excision of endometriosis, cystoscopy for fibroid uterus S/P subtotal parathyroidectomy 3/4 Family History Denies family history of Ovarian cancer Breast cancer Colorectal cancer Uterine cancer Social History Smoking Status: Former smoker Do You Dip or Chew Tobacco: No; Tobacco Cessation Education Requested by Patient: No Hx Alcohol Use: Yes Hx Substance Use: No Preferred Language: Vincentian Communication Ability: Effective Nut Sorter Required: No Beliefs That Will Affect Care: None Current Living Situation: Spouse Other Information That Helps Us Care for You: No Feels Safe at Home: Yes Safety Concerns: Feels Safe At This Time Assistive Devices: Glasses Review of Systems +vision changes Results & Data Vital Signs (Past 12 Hours) Vital Signs Temp Pulse Pulse Pulse Resp BP BP 09/05/22 07:49 36.8 C 52 L 16 159/89 H 09/05/22 01:44 51 L 09/05/22 02:02 36.6 C 52 L 14 171/94 H 09/05/22 02:03 36.6 C 52 L 14 171/94 H 09/04/22 23:40 66 09/05/22 00:00 58 L 16 132/86 09/04/22 23:30 57 L 17 137/86 09/04/22 23:00 60 18 134/84 09/04/22 22:50 61 19 156/96 H Pulse Ox O2 Del Method 09/05/22 07:49 99 Room Air 09/05/22 01:44 09/05/22 02:02 100 Room Air 09/05/22 02:03 100 Room Air 09/04/22 23:40 09/05/22 00:00 95 09/04/22 23:30 96 09/04/22 23:00 99 Room Air 09/04/22 22:50 97 Room Air Laboratory Results Abnormal lab results 09/04/22 09/04/22 09/04/22 Range/Units 22:29 22:29 22:29 RBC (4.20-5.40) M/uL Hct (37.0-47.0) % [place] # (Auto) 0.74 H (0.11-0.59) K/uL Chloride (98-107) mmol/L POC BUN (7-18) mg/dl BUN/Creatinine Ratio 20.2 H (10-20) Glucose 105 H (70-99(Fasting)) mg/dl POC Glucose (other) (70-99) mg/dl Lyme Disease IgM Ab Equivocal A (Negative) 09/04/22 09/05/22 09/05/22 Range/Units 22:34 06:05 06:05 RBC 3.95 L (4.20-5.40) M/uL Hct 36.1 L (37.0-47.0) % [place] # (Auto) 0.61 H (0.11-0.59) K/uL Chloride 108 H (98-107) mmol/L POC BUN 20 H (7-18) mg/dl BUN/Creatinine Ratio (10-20) Glucose (70-99(Fasting)) mg/dl POC Glucose (other) 106 H (70-99) mg/dl Lyme Disease IgM Ab (Negative) Diagnostic Findings CT/CTA - Unremarkable
--- NOTE | 2022-09-05 12:55 | Magnetic Resonance Report ---
MR brain wo con HISTORY: 57 years-old Female tia acute stroke like symptoms COMPARISON: Head CT 09/04/2022, brain MRI 06/22/2007 TECHNIQUE: Multiplanar multisequence MRI of the brain was obtained without the use of IV contrast. FINDINGS: No restricted diffusion. Midline structures appear unremarkable. Empty sella. Degenerative changes of the imaged cervical spine. No acute intracranial hemorrhage, midline shift, abnormal extra-axial col lection, hydrocephalus or intracranial mass. No pathologic imaging artifact. Sinuses and major arterial flow voids are patent. Skull, orbits and soft tissues are unremarkable. Ma stoid air cells and paranasal sinuses are clear. Mild involutional changes. Minimal T2/FLAIR hyperint ense foci suggestive of chronic microvascular ischemic disease. IMPRESSION: No acute intracranial abnormality. No acute or subacute infarct. ACT 112: Negative or not required by law. The above report was generated using voice recognition software. It may contain grammatical, syntax o r spelling errors. Electronically signed by: Arias Eaton M.D. 09/05/2022 12:53 PM
--- NOTE | 2022-09-05 13:31 | Hospitalist Progress Note ---
Date of Service September 05, 2022 Assessment & Plan (1) Transient visual disturbance, right: Plan: Strokelike symptoms Likely Ocular migraine H/O Migraine --MRI Brain:No acute intracranial abnormality. No acute or subacute infarct. --Head CTA:Negative CT angiogram of the head. --Neck CTA:Negative CTA neck. --ECHO: Normal left ventricle wall thickness. Left ventricle systolic function is normal. EF 60 to 65%. Left ventricle wall motion is normal. Interatrial septum is intact with no evidence of any atrial septal defect or assist with the administration of agitated saline contrast. No significant valvular disease. --Lipid Panel: Normal -- Advised to discuss with PCP regarding possible need for alternate treatment for hot flashes (Was on Estradiol ) -- Continue aspirin Appreciate neurology input Was recently started on ubrogepant by her primary neurologist Advised to follow-up with neurology upon discharge Suspected Lyme's Disease Lyme serology pending Empirically started on doxycycline Advised to follow-up with PCP and discussed need for continuation of treatment based on serology results Sinus bradycardia Likely physiological Hypertension Discontinue atenolol Start on amlodipine Needs further adjustment of antihypertensives as needed Primary hyperparathyroidism S/P surgery GERD Continue antacid as needed Anxiety/mood disorder Continue home medications DVT Px: Lovenox SQ Code Status Full code Admission and Anticipated Discharge Date Admission Date: September 05, 2022 Subjective Patient is seen and examined at bedside States having pressure-like headache Also reports hot flashes intermittently Denies any chest pain, dyspnea, dizziness, change in vision, slurred speech, fo jenna weakness No other complaints Review of Systems Review of Systems: All systems reviewed & are unremarkable except as noted in Subjective Physical Exam Physical Exam: Physical Exam: Vitals signs as noted above General Appearance:Thin, no apparent distress Head: normocephalic, Atraumatic Eyes: normal inspection, EOMI Neck: supple, Trachea midline Respiratory/Chest: Normal breath sounds, CTA, No accessory muscle use Cardiovascular: S1, S2, bradycardia, No murmur Abdomen/GI:Soft, Non tender, Bowel sounds present Extremities/Musculoskeletal:normal inspection, no edema Neurologic/Psych:AAOX3, grossly no focal neurological deficits Skin: normal color, warm Results & Data Results & Data Vital Signs (Past 12 Hours) Vital Signs Temp Pulse Pulse Resp BP Pulse Ox O2 Del Method 09/05/22 07:49 36.8 C 52 L 16 159/89 H 99 Room Air 09/05/22 01:44 51 L 09/05/22 02:02 36.6 C 52 L 14 171/94 H 100 Room Air 09/05/22 02:03 36.6 C 52 L 14 171/94 H 100 Room Air Laboratory Results Short CBC 09/04/22 09/05/22 Range/Units 22:29 06:05 WBC 7.12 5.08 (4.8-10.8) K/ul Hgb 13.5 12.5 (12.0-16.0) g/dl Hct 38.9 36.1 L (37.0-47.0) % Plt Count 217 180 (130-400) K/uL BMP 09/04/22 09/05/22 22:29 06:05 Sodium 139 142 Potassium 3.9 4.0 Chloride 104 108 H Carbon Dioxide 29 29 BUN 21 16 Creatinine 1.04 0.83 Glucose 105 H 88 Calcium 9.4 8.7 Liver Function 09/04/22 Range/Units 22:29 Total Bilirubin 0.5 (0.2-1.0) mg/dl AST 24 (13-39) U/L ALT 23 (7-52) U/L Alkaline Phosphatase 73 (34-104) U/L Albumin 4.3 (3.4-5.0) gm/dl
[2022-09-05] MEDS ORDERED: amLODIPine BESYLATE 5 MG TAB PO ONE (13:34)
--- NOTE | 2022-09-05 13:50 | Communication Note ---
Date of Service: September 05, 2022 Neurology Update: MRI negative, therefore more likely ocular migraine than stroke. Would continue her MEDICAL RADIATION DOSIMETRIST aspirin. Otherwise no further workup recommended.
--- NOTE | 2022-09-05 14:00 | Discharge Summary ---
Date of Service September 05, 2022 Admission HPI Per Admitting Provider History obtained from patient and records. Medical history significant for hypertension, hx small vessel ischemic disease on outpatient imaging, primary hyperparathyroidism status post surgery, migraine, GERD, anxiety/mood disorder. Patient started by technical instructor on estrogen patch for perimenopausal vasomotor symptoms last month. Last night, patient was out for a jog when she noted a black spot on the periphery of her right eye. Black spot went into the middle of her high causing her to be blind for about 4 minutes. Tolerable biparietal headache symptoms at time of event different from usual migraine attack. No neck pain. No recollection of tick bites but patient recalls being out in the earlier yesterday. Patient denies chest pain, SOB. No recent head trauma. Patient compliant with home aspirin prescribed for small vessel ischemic disease findings on outpatient imaging last year following work-up for headache symptoms later attributed to migraine. Aspirin prescribed by neurologist for stroke prevention. Patient consulted ER for evaluation. 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 Admission Exam Per Admitting Provider GENERAL: Comfortable, pleasant, no respiratory distress SKIN: Normal color, warm HEENT: Gore palpebral conjunctivae, no ptosis, dry buccal mucosa NECK : Supple, no tenderness CHEST : CTA, no tenderness HEART : Bradycardic, no obvious murmurs ABDOMEN: Some distention, nontender EXTREMITIES : No LE swelling/tenderness, no other conspicuous deformities noted NEUROLOGIC : Coherent, no facial asymmetry, no other gross focality Principal Diagnosis Strokelike symptoms Likely Ocular migraine Suspected Lyme's Disease Sinus bradycardia Discharge Data Allergies Allergy/AdvReac Type Severity Reaction Status Date / Time No Known Drug Allergies Allergy Verified 08/05/22 09:02 Consultations 09/04/22 23:41 ED Decision to Admit Stat 09/05/22 02:02 Consult Neurology Routine Procedures Performed Laboratory Results WBC 5.08 K/ul (4.8-10.8) 09/05/22 06:05 RBC 3.95 M/uL (4.20-5.40) L 09/05/22 06:05 Hgb 12.5 g/dl (12.0-16.0) 09/05/22 06:05 POC Hgb 13.6 g/dl (12.0-16.0) 09/04/22 22:34 Hct 36.1 % (37.0-47.0) L 09/05/22 06:05 POC Hct 40 % (37-47) 09/04/22 22:34 MCV 91.4 fL (80.0-100.0) 09/05/22 06:05 MCH 31.6 pg (25.0-34.0) 09/05/22 06:05 MCHC 34.6 g/dL (32.0-36.0) 09/05/22 06:05 RDW Std Deviation 41.6 fL (36.4-46.3) 09/05/22 06:05 RDW Coeff of Isma 12.6 % (11.5-14.5) 09/05/22 06:05 Plt Count 180 K/uL (130-400) 09/05/22 06:05 MPV 11.9 fL (9.4-12.4) 09/05/22 06:05 Immature Gran % (Auto) 0.4 % 09/05/22 06:05 Neut % (Auto) 53.7 % 09/05/22 06:05 Lymph % (Auto) 32.1 % 09/05/22 06:05 [place] % (Auto) 12.0 % 09/05/22 06:05 Eos % (Auto) 1.4 % 09/05/22 06:05 Baso % (Auto) 0.4 % 09/05/22 06:05 Neut # (Auto) 2.73 K/uL (1.40-6.50) 09/05/22 06:05 Lymph # (Auto) 1.63 K/uL (1.2-3.4) 09/05/22 06:05 [place] # (Auto) 0.61 K/uL (0.11-0.59) H 09/05/22 06:05 Eos # (Auto) 0.07 K/uL (0-0.50) 09/05/22 06:05 Baso # (Auto) 0.02 K/uL (0-0.2) 09/05/22 06:05 Immature Gran # (Auto) 0.02 K/uL (0.01-0.20) 09/05/22 06:05 PT 10.8 Seconds (9.0-12.0) 09/04/22 22:29 INR 1.0 (0.9-1.1) 09/04/22 22:29 APTT 24.5 Seconds (21.0-31.0) 09/04/22 22:29 PTT Ratio 0.9 09/04/22 22:29 POC Sodium 141 mmol/L (135-144) 09/04/22 22:34 Sodium 142 mmol/L (136-145) 09/05/22 06:05 POC Potassium 3.9 mmol/L (3.3-5.0) 09/04/22 22:34 Potassium 4.0 mmol/L (3.5-5.1) 09/05/22 06:05 POC Chloride 102 mmol/L (101-112) 09/04/22 22:34 Chloride 108 mmol/L (98-107) H 09/05/22 06:05 Carbon Dioxide 29 mmol/L (21-32) 09/05/22 06:05 POC Total CO2 26 mmol/L (24-31) 09/04/22 22:34 Anion Gap 5 (3-11) 09/05/22 06:05 POC Anion Gap 18.0 mmol/L (16-25) 09/04/22 22:34 POC BUN 20 mg/dl (7-18) H 09/04/22 22:34 BUN 16 mg/dl (6-23) 09/05/22 06:05 Creatinine 0.83 mg/dl (0.6-1.2) 09/05/22 06:05 POC Creatinine 1.1 mg/dl (0.6-1.3) 09/04/22 22:34 Est Cr Clr Drug Dosing 66.5 ml/min 09/05/22 06:05 Est GFR ( Amer) 90.1 ml/min 09/05/22 06:05 Est GFR (Non-Af Amer) 77.7 ml/min 09/05/22 06:05 BUN/Creatinine Ratio 19.3 (10-20) 09/05/22 06:05 Glucose 88 mg/dl (70-99(Fasting)) 09/05/22 06:05 POC Glucose (other) 106 mg/dl (70-99) H 09/04/22 22:34 Calcium 8.7 mg/dl (8.6-10.3) 09/05/22 06:05 POC Ioniz Calcium Angel 1.18 mmol/l (1.12-1.32) 09/04/22 22:34 Magnesium 2.2 mg/dl (1.7-2.4) 09/04/22 22:29 Total Bilirubin 0.5 mg/dl (0.2-1.0) 09/04/22 22:29 AST 24 U/L (13-39) 09/04/22 22:29 ALT 23 U/L (7-52) 09/04/22 22:29 Alkaline Phosphatase 73 U/L (34-104) 09/04/22 22:29 Troponin I High Sens 3.6 pg/ml (0-14) 09/04/22 22:29 Total Protein 7.8 gm/dl (6.0-8.3) 09/04/22 22:29 Albumin 4.3 gm/dl (3.4-5.0) 09/04/22 22:29 Globulin 3.5 gm/dl (2.5-4.0) 09/04/22 22:29 Albumin/Globulin Ratio 1.2 (0.9-2) 09/04/22 22:29 Triglycerides 71 mg/dl (0-150) 09/05/22 06:05 Cholesterol 153 mg/dl (0-200) 09/05/22 06:05 LDL Cholesterol, Calc 86 mg/dl 09/05/22 06:05 VLDL Cholesterol, Calc 14 mg/dl (0-30) 09/05/22 06:05 HDL Cholesterol 53 mg/dl 09/05/22 06:05 Cholesterol/HDL Ratio 2.9 (0-5) 09/05/22 06:05 TSH 3.455 uIu/ml (0.300-4.500) 09/04/22 22:29 Anaplasma Smear Cancelled 09/05/22 06:05 Anaplasma Smear See Comment 09/05/22 06:05 Lyme Disease IgG Ab Negative (Negative) 09/04/22 22:29 Lyme Disease IgM Ab Equivocal (Negative) A 09/04/22 22:29 SARS-CoV-2, RNA, NAAT NEGATIVE (NEGATIVE) 09/05/22 00:04 Blood Type B Positive 09/04/22 22:29 Antibody Screen NEGATIVE 09/04/22 22:[address] 09/04/22 22:19 CR Exam(s): CT HEAD Without Contrast EXAM: CT Head Without Intravenous Contrast CLINICAL HISTORY: Reason for exam: neuro deficit, acute stroke suspected. TECHNIQUE: Axial computed tomography images of the head/brain without intravenous contrast. CTDI is 38.78 mGy and DLP is 1133.74 mGy-cm. Automated exposure control was utilized for the study. A dose lowering technique was utilized adhering to the principles of ALARA. COMPARISON: Comparison made to prior brain MRI from December 23, 2007. FINDINGS: Brain: Unremarkable. No hemorrhage. No significant white matter disease. No edema. Ventricles: Unremarkable. No ventriculomegaly. Bones/joints: Unremarkable. No acute fracture. Soft tissues: Unremarkable. Sinuses: Unremarkable as visualized. No acute sinusitis. Mastoid air cells: Unremarkable as visualized. No mastoid effusion. IMPRESSION: No evidence of acute intracranial pathology. Communications: Call Doctor Stroke Electronically signed by: Cristina Finley MD 09/04/22 23:04 PM Head CTA 09/04/22 22:19 CR Exam(s): CTA HEAD With Contrast EXAM: CT Head With Intravenous Contrast CLINICAL HISTORY: Reason for exam: neuro deficit, acute stroke suspected. TECHNIQUE: Axial computed tomographic images of the head with intravenous contrast. CTDI is 38.78 mGy and DLP is 1133.74 mGy-cm. Automated exposure control was utilized for the study. A dose lowering technique was utilized adhering to the principles of ALARA. CONTRAST: Contrast must be dictated COMPARISON: No relevant prior studies available. FINDINGS: Right internal carotid artery: No acute findings. Intracranial segment is patent with no significant stenosis. No aneurysm. Right anterior cerebral artery: Unremarkable. No occlusion or significant stenosis. No aneurysm. Right middle cerebral artery: Unremarkable. No occlusion or significant stenosis. No aneurysm. Right posterior cerebral artery: Unremarkable. No occlusion or significant stenosis. No aneurysm. Right vertebral artery: Unremarkable as visualized. Left internal carotid artery: No acute findings. Intracranial segment is patent with no significant stenosis. No aneurysm. Left anterior cerebral artery: Unremarkable. No occlusion or significant stenosis. No aneurysm. Left middle cerebral artery: Unremarkable. No occlusion or significant stenosis. No aneurysm. Left posterior cerebral artery: Unremarkable. No occlusion or significant stenosis. No aneurysm. Left vertebral artery: Unremarkable as visualized. Basilar artery: Unremarkable. No occlusion or significant stenosis. No aneurysm. IMPRESSION: Negative CT angiogram of the head. Communications: Call Doctor Stroke Electronically signed by: Cristina Finley MD 09/04/22 23:07 PM Neck CTA 09/04/22 22:19 CR Exam(s): CTA NECK With Contrast EXAM: CT Neck With Intravenous Contrast CLINICAL HISTORY: Reason for exam: neuro deficit, acute stroke suspected. TECHNIQUE: Routine carotid CT protocol was performed with intravenous contrast. NASCET criteria using the distal ICAs for comparison were used for evaluation of stenoses. CTDI is 38.78 mGy and DLP is 1133.74 mGy-cm. Automated exposure control was utilized for the study. A dose lowering technique was utilized adhering to the principles of ALARA. CONTRAST: Contrast must be dictated COMPARISON: None. FINDINGS: VASCULATURE: Right common carotid artery: Unremarkable. No occlusion or significant stenosis. No dissection. Right internal carotid artery: Unremarkable. Extracranial segment is patent with no occlusion or significant stenosis. No dissection. Right external carotid artery: Unremarkable. No occlusion. Right vertebral artery: Unremarkable. No occlusion or significant stenosis. No dissection. Left common carotid artery: Unremarkable. No occlusion or significant stenosis. No dissection. Left internal carotid artery: Unremarkable. Extracranial segment is patent with no occlusion or significant stenosis. No dissection. Left external carotid artery: Unremarkable. No occlusion. Left vertebral artery: Unremarkable. No occlusion or significant stenosis. No dissection. NECK: Bones/joints: Unremarkable. Soft tissues: Prominent cervical lymph nodes. Lung apices: Findings concerning for bronchitis, which may be of infectious or inflammatory etiologies. CAROTID STENOSIS REFERENCE USING NASCET CRITERIA: % ICA stenosis = (1 - narrowest ICA diameter/diameter of distal cervical ICA) x 100. Mild - <50% stenosis. Moderate - 50-69% stenosis. Severe - 70-94% stenosis. Near occlusion - 95-99% stenosis. Occluded - 100% stenosis. IMPRESSION: Negative CTA neck. Communications: Call Doctor Stroke Electronically signed by: Cristina Finley MD 09/04/22 23:09 PM Brain MRI 09/05/22 02:02 MR brain wo con HISTORY: 57 years-old Female tia acute stroke like symptoms COMPARISON: Head CT 09/04/2022, brain MRI 06/22/2007 TECHNIQUE: Multiplanar multisequence MRI of the brain was obtained without the use of IV contrast. FINDINGS: No restricted diffusion. Midline structures appear unremarkable. Empty sella. Degenerative changes of the imaged cervical spine. No acute intracranial hemorrhage, midline shift, abnormal extra-axial collection, hydrocephalus or intracranial mass. No pathologic imaging artifact. Sinuses and major arterial flow voids are patent. Skull, orbits and soft tissues are unremarkable. Mastoid air cells and paranasal sinuses are clear. Mild involutional changes. Minimal T2/FLAIR hyperintense foci suggestive of chronic microvascular ischemic disease. IMPRESSION: No acute intracranial abnormality. No acute or subacute infarct. ACT 112: Negative or not required by law. The above report was generated using voice recognition software. It may contain grammatical, syntax or spelling errors. Electronically signed by: Arias Eaton M.D. 09/05/2022 12:53 PM Ordered Studies 09/04/22 22:19 CT angio head w con Stat CT angio neck with con Stat CT head/brain wo con Stat 09/05/22 02:02 MR brain wo con Urgent Hospital Course (1) Transient visual disturbance, right: Strokelike symptoms Likely Ocular migraine H/O Migraine --MRI Brain:No acute intracranial abnormality. No acute or subacute infarct. --Head CTA:Negative CT angiogram of the head. --Neck CTA:Negative CTA neck. --ECHO: Normal left ventricle wall thickness. Left ventricle systolic function is normal. EF 60 to 65%. Left ventricle wall motion is normal. Interatrial septum is intact with no evidence of any atrial septal defect or assist with the administration of agitated saline contrast. No significant valvular disease. --Lipid Panel: Normal -- Advised to discuss with PCP regarding possible need for alternate treatment for hot flashes (Was on Estradiol ) -- Continue aspirin Appreciate neurology input Was recently started on ubrogepant by her primary neurologist Advised to follow-up with neurology upon discharge Suspected Lyme's Disease Lyme serology pending Empirically started on doxycycline Advised to follow-up with PCP and discussed need for continuation of treatment based on serology results Sinus bradycardia Likely physiological Hypertension Discontinue atenolol Start on amlodipine Needs further adjustment of antihypertensives as needed Primary hyperparathyroidism S/P surgery GERD Continue antacid as needed Anxiety/mood disorder Continue home medications DVT Px: Lovenox SQ Code Status Full code Total Time Total Time Spent Total Time Spent (In Minutes): 54 minutes Discharge Plan Discharge Items Patient Disposition: Home - Self-Care Reason For Visit: TIA Discharge Diagnosis: Strokelike symptoms Likely Ocular migraine Suspected Lyme's Disease Sinus bradycardia Activity: Per Instructions section Exercise/Sports: Gradually increase as tolerated Non-emergency contact: Primary Care Provider and Neurologist Call non-emergency contact if: you have any medication questions, your symptoms worsen, your pain is concerning for you and you have a fever Follow-up/Referrals: Timoteo Vasquez, DO [Primary Care Provider] - Diet: Heart Healthy Addtl Attending Provider Instructions: Follow-up with your primary care physician Dr. Timoteo Vasquez in 1 week Follow-up with your neurologist in 3 to 4 weeks as advised. --- Your serological test for Lyme disease is pending at the time of discharge. Follow-up with your physician for results. Discuss with your physician for further need of continuing doxycycline course as prescribed based on your Lyme's test results. -- Monitor your blood pressure regularly at home and discuss with your physician for further adjustment of medications as needed to help better control your blood pressure. Seek immediate medical attention if your symptoms reoccur or worsen Please take all medications as instructed on discharge list below. Please call if you have any questions or problems. You can reach a [facility] hospitalist on duty at [facility] 24 hours a day by calling [phone] Risk Factors for Stroke: You can reduce your chances of stroke by working with your medical provider to adopt a healthy lifestyle. Some specific ways to lower your chance of stroke are: * If you are a smoker, now is the time to stop smoking cigarettes * If you are diabetic, improve the control of your blood sugars * Avoid excessive amounts of alcohol * Control high blood pressure * Lose weight if you are overweight * Be sure to lead an active lifestyle * Eat a healthy diet low in salt, cholesterol and fat You should know about other risk factors for stroke that you are unable to control. These include: * Age 55 years or older * Male gender * Certain racial groups: , or / * Family History of Stroke, Mini stroke or Heart Attack * Sickle Cell Disease Follow Up: It is important for you to keep your follow up appointments with your medical provider. Who to Call and When: Medical Emergencies: Call 911 immediately if you experience any of the following warning signs and symptoms of Stroke: * Sudden numbness or weakness of the face, arm or leg, especially on one side of the body * Sudden confusion, trouble speaking or understanding * Sudden trouble seeing in one or both eyes * Sudden trouble walking, dizziness, loss of balance or coordination * Sudden severe headache with no cause Do not delay calling 911 if you experience any warning signs or symptoms of a stroke. Delay in seeking medical attention may affect what treatments can be given to you. . Pending Studies at Discharge: Yes Studies:: Lyme Serology Stand-Alone Forms: My [facility] 7write, Smoking Cessation Medications and DC Order Prescriptions: New doxycycline hyclate 100 mg Capsule 100 mg PO BID Qty: 19 0RF amlodipine [Norvasc] 5 mg Tablet 5 mg PO QAM Qty: 30 1RF Continued estradiol 0.025 mg/24 hr patch semiweekly 1 patch transdermal [id number] Rx Instructions: Apply 1 patch to skin 2x/week cholecalciferol (vitamin D3) 50 mcg (2,000 unit) capsule 100 mcg PO DAILY lorazepam 0.5 mg tablet 0.5 mg PO DAILY PRN (Reason: Anxiety) aspirin [Aspirin Low-Strength] 81 mg Tablet,Delayed Release (Dr/Ec) 81 mg PO DAILY Ubrelvy 50 mg tablet 50 mg PO UD PRN (Reason: Migraine Headache) Rx Instructions: take 50 mg at onset of headache, may repeat in 2 hours if ineffective x1 nortriptyline 10 mg capsule 20 mg PO HS vitamin E 268 mg (400 unit) Capsule 268 mg PO DAILY Discontinued atenolol 25 mg tablet 25 mg PO DAILY Discharge Orders: Discharge Order (Routine); Ordered 09/05/22 Ordered By: Edmar Leonard Admission Data Admit Date/Time: 09/05/22 00:45 Attending Provider: Edmar Leonard Admit Provider: Jamir Woodall Primary Care Provider: Timoteo Vasquez Other Providers: Jamir Woodall
[2022-09-05] MEDS ORDERED: DOXYCYCLINE HYCLATE 100 MG CAP PO SCH (21:00)
[2022-09-05] MEDS ORDERED: NORTRIPTYLINE HCL 10 MG CAP PO SCH (21:00)
[2022-09-06] MEDS ORDERED: CLOPIDOGREL BISULFATE 75 MG TAB PO SCH (09:00)
[2022-09-06] MEDS ORDERED: amLODIPine BESYLATE 5 MG TAB PO SCH (09:00)
--- NOTE | 2022-09-06 21:54 | Electrocardiogram Report ---
Test Reason : Blood Pressure : / mmHG Vent. Rate : 055 BPM Atrial Rate : 055 BPM P-R Int : 132 ms QRS Dur : 084 ms QT Int : 452 ms P-R-T Axes : -04 050 046 degrees QTc Int : 432 ms Sinus bradycardia Otherwise normal ECG No previous ECGs available Confirmed by Uvaldo Wood ([id number]) on 09/06/2022 9:53:40 PM Referred By: REFERRED SELF Confirmed By:Uvaldo Wood
[2022-09-08 02:42] LABS: 18KDIGG Band NON-REACTIVE; 23KDIGG Band NON-REACTIVE; 23KDIGM Band NON-REACTIVE; 28KDIGG Band NON-REACTIVE; 30KDIGG Band NON-REACTIVE; 39KDIGG Band NON-REACTIVE; 39KDIGM Band NON-REACTIVE; 41KDIGG Band REACTIVE; 41KDIGM Band NON-REACTIVE; 45KDIGG Band NON-REACTIVE; 58KDIGG Band NON-REACTIVE; 66KDIGG Band NON-REACTIVE; 93KDIGG Band NON-REACTIVE; Lyme Antibodies, WB IgG NEGATIVE (NEGATIVE); Lyme Antibodies, WB IgM NEGATIVE (NEGATIVE)
== END 2022-09-05 15:57 | disposition home or self-care (01) ==
LOC: ED 21:55 → 2W 09-05 00:45 → INTOOBSV 09-05 00:45 → 2W 09-05 01:18